=== PATIENT | male | born 1970 | race Caucasian/White ===

== ENCOUNTER 2019-09-15 21:40 | Inpatient (IN) | payer MEDICAID, OTHER ==
[~2019-09-15] VITALS: Ht 180.3 cm; Wt 60.6 kg
[2019-09-15 21:00] VITALS: BP 130/92
[2019-09-15 22:00] VITALS: BP 129/93
--- NOTE | 2019-09-15 22:11 | NUR ---
PAGER ID: [phone] MESSAGE: Jeison Hamm. Olivier Barrios in room 311, has arrived direct admit from [place]. He is here for a left pneumothorax, chest tube in place. Dr Butler to consult in Am for possible VATS procedure. Shekhar Rn Ext [phone]
[2019-09-15] MEDS ORDERED: magnesium Cl slow-release 64mg tablet PO PRN (22:15)
[2019-09-15] MEDS ORDERED: magnesium 4gm in 100ml NS 100 ML IV PRN (22:15)
[2019-09-15] MEDS ORDERED: mag hydrox/Alum hydrox/simeth 30ml oral suspension PO PRN (22:15)
[2019-09-15] MEDS ORDERED: morphine 2 MG/ML inj. syringe IV PRN (22:15)
[2019-09-15] MEDS ORDERED: bisacodyl 10mg suppository rectal RC PRN (22:15)
[2019-09-15] MEDS ORDERED: potassium CL 10mEq/100ml bag 100 ML IV PRN ×2 (22:15)
[2019-09-15] MEDS ORDERED: acetaminophen 325mg tablet PO PRN (22:15)
[2019-09-15] MEDS ORDERED: potassium Cl 20 mEq SR tablet PO PRN ×2 (22:15)
[2019-09-15] MEDS ORDERED: magnesium 2GM in 50ml NS 50 ML IV PRN (22:15)
[2019-09-15] MEDS ORDERED: ondansetron/PF 4mg/2ml inj IV PRN (22:15)
[2019-09-16] MEDS: HYDROcodone/acetaminophen 5mg/325mg tablet PO PRN ×2 (00:07→13:18)
[2019-09-16 02:00] VITALS: BP 137/69
[2019-09-16 02:57] LABS: BASOPHILS # (AUTO) 0.1 X10'3 (0-0.2); BASOPHILS % (AUTO) 0.5 % (0-1); EOSINOPHILS # (AUTO) 0.2 X10'3 (0-0.9); EOSINOPHILS % (AUTO) 2.1 % (0-6); HEMATOCRIT 49.9 % (42.0-52.0); HEMOGLOBIN 16.7 g/dl (14.0-17.9); LYMPHOCYTES # (AUTO) 2.2 X10'3 (1.1-4.8); LYMPHOCYTES % (AUTO) 18.8 % (21-51); MEAN CORPUSCULAR HEMOGLOBIN 31.2 PG (27.0-31.0); MEAN CORPUSCULAR HGB CONC 33.4 g/dL (33.0-36.5); MEAN CORPUSCULAR VOLUME 93.4 FL (78-98); MONOCYTES # (AUTO) 1.1 X10'3 (0-0.9); MONOCYTES % (AUTO) 9.3 % (2-12); NEUTROPHILS # (AUTO) 8.1 X10'3 (1.8-7.7); NEUTROPHILS % (AUTO) 69.3 % (42-75); PLATELET COUNT 337 X10'3 (140-440); RED BLOOD COUNT 5.34 X10'6 (4.70-6.10); RED CELL DISTRIBUTION WIDTH 14.4 % (11.5-14.5); WHITE BLOOD COUNT 11.6 X10'3 (4.5-11.0)
[2019-09-16 03:02] LABS: ALANINE AMINOTRANSFERASE 22 U/L (12-78); ALBUMIN 3.5 G/DL (3.4-5.0); ALKALINE PHOSPHATASE 56 IU/L (46-116); ANION GAP 8 (8-16); ASPARTATE AMINO TRANSFERASE 19 U/L (10-37); BILIRUBIN,TOTAL 0.3 MG/DL (0.1-1.0); BLOOD UREA NITROGEN 12 MG/DL (7-18); BUN/CREATININE RATIO 13.2 (5.4-32.0); CALCIUM 9.2 MG/DL (8.5-10.1); CHLORIDE 107 MMOL/L (99-107); CREATININE 0.91 MG/DL (0.60-1.10); GLUCOSE 108 MG/DL (70-104); MAGNESIUM 1.8 MG/DL (1.5-2.4); PHOSPHORUS 3.4 MG/DL (2.3-4.5); POTASSIUM 4.2 MMOL/L (3.5-5.1); SODIUM 141 MMOL/L (135-145); TOTAL CARBON DIOXIDE 25.7 MMOL/L (24-32); TOTAL PROTEIN 6.9 G/DL (6.4-8.2); eGFR 89 ML/MIN
[2019-09-16 06:00] VITALS: BP 124/88
--- NOTE | 2019-09-16 06:22 | NUR ---
Problems reprioritized. Patient report given, questions answered & plan of care reviewed with Tamar GERARD.
[2019-09-16] MEDS: K and/or MAG REPLACEMENT MC SCH ×2 (08:00→20:00)
[2019-09-16] MEDS ORDERED: FLU VACC QS2019-20 36MOS UP/PF 60 MCG/0.5 ML SYRINGE IMVAC ONE (10:00)
[2019-09-16] MEDS ORDERED: [UNRECOGNIZED DRUG - CODE] PO (10:27)
[2019-09-16 11:00] VITALS: BP 133/95
[2019-09-16] MEDS: docusate sod 100mg capsule PO SCH ×2 (13:33→19:19)
[2019-09-16 15:00] VITALS: BP 130/91
[2019-09-16 18:00] VITALS: BP 146/98
--- NOTE | 2019-09-16 18:37 | NUR ---
Patient in room MED 311. I have received report from Tamar GERARD and had the opportunity to ask questions and assume patient care.
[2019-09-16 22:00] VITALS: BP 155/112
[2019-09-17] VITALS (16 sets, daily range): BP systolic 101–149; BP diastolic 63–101
[2019-09-17 05:56] LABS: EOSINOPHILS # (AUTO) 0.2 X10'3 (0-0.9); LYMPHOCYTES # (AUTO) 1.7 X10'3 (1.1-4.8); MEAN PLATELET VOLUME 8.6 FL (7.4-10.4); NEUTROPHILS # (AUTO) 5.8 X10'3 (1.8-7.7); WHITE BLOOD COUNT 8.4 X10'3 (4.5-11.0)
[2019-09-17 05:58] LABS: BASOPHILS % (AUTO) 0.5 % (0-1); EOSINOPHILS % (AUTO) 2.5 % (0-6); HEMATOCRIT 51.6 % (42.0-52.0); HEMOGLOBIN 17.2 g/dl (14.0-17.9); LYMPHOCYTES % (AUTO) 20.6 % (21-51); MEAN CORPUSCULAR HEMOGLOBIN 31.4 PG (27.0-31.0); MEAN CORPUSCULAR HGB CONC 33.4 g/dL (33.0-36.5); MEAN CORPUSCULAR VOLUME 94.1 FL (78-98); MONOCYTES # (AUTO) 0.6 X10'3 (0-0.9); MONOCYTES % (AUTO) 7.7 % (2-12); NEUTROPHILS % (AUTO) 68.7 % (42-75); PLATELET COUNT 349 X10'3 (140-440); RED BLOOD COUNT 5.48 X10'6 (4.70-6.10); RED CELL DISTRIBUTION WIDTH 13.9 % (11.5-14.5)
[2019-09-17 06:22] LABS: ALANINE AMINOTRANSFERASE 28 U/L (12-78); ALBUMIN 3.6 G/DL (3.4-5.0); ALKALINE PHOSPHATASE 59 IU/L (46-116); ANION GAP 7 (8-16); ASPARTATE AMINO TRANSFERASE 25 U/L (10-37); BILIRUBIN,TOTAL 0.4 MG/DL (0.1-1.0); BLOOD UREA NITROGEN 15 MG/DL (7-18); BUN/CREATININE RATIO 16.5 (5.4-32.0); CALCIUM 9.4 MG/DL (8.5-10.1); CHLORIDE 105 MMOL/L (99-107); CREATININE 0.91 MG/DL (0.60-1.10); GLUCOSE 91 MG/DL (70-104); MAGNESIUM 1.9 MG/DL (1.5-2.4); PHOSPHORUS 4.4 MG/DL (2.3-4.5); POTASSIUM 4.1 MMOL/L (3.5-5.1); SODIUM 140 MMOL/L (135-145); TOTAL CARBON DIOXIDE 28.5 MMOL/L (24-32); TOTAL PROTEIN 7.3 G/DL (6.4-8.2); eGFR 89 ML/MIN
--- NOTE | 2019-09-17 06:22 | NUR ---
Patient in room MED 311. I have received report from Shekhar GERARD and had the opportunity to ask questions and assume patient care.
--- NOTE | 2019-09-17 06:25 | NUR ---
Problems reprioritized. Patient report given, questions answered & plan of care reviewed with Ti GERARD.
[2019-09-17] MEDS: docusate sod 100mg capsule PO SCH ×2 (07:26→19:47)
[2019-09-17] MEDS: HYDROcodone/acetaminophen 5mg/325mg tablet PO PRN ×3 (07:27→19:48)
[2019-09-17] MEDS: K and/or MAG REPLACEMENT MC SCH ×2 (08:31→18:30)
--- NOTE | 2019-09-17 18:31 | NUR ---
Patient in room MED 311. I have received report from Ti GERARD and had the opportunity to ask questions and assume patient care.
--- NOTE | 2019-09-17 18:33 | NUR ---
Problems reprioritized. Patient report given, questions answered & plan of care reviewed with Shekhar RN.
[2019-09-18] VITALS (7 sets, daily range): BP systolic 132–144; BP diastolic 76–109
[2019-09-18] MEDS: HYDROcodone/acetaminophen 5mg/325mg tablet PO PRN ×2 (06:20→19:44)
--- NOTE | 2019-09-18 06:21 | NUR ---
Patient in room MED 311. I have received report from MOUSTAPHA Corrigan and had the opportunity to ask questions and assume patient care. Patient currently resting in bed, c/o pain 5/10, [place] 5 given as ordered, no other complaints, bed locked and low, call light in reach, will continue to monitor.
--- NOTE | 2019-09-18 06:24 | NUR ---
Problems reprioritized. Patient report given, questions answered & plan of care reviewed with Alana GERARD.
[2019-09-18 06:36] LABS: BASOPHILS % (AUTO) 0.4 % (0-1); EOSINOPHILS # (AUTO) 0.2 X10'3 (0-0.9); EOSINOPHILS % (AUTO) 2.5 % (0-6); HEMATOCRIT 50.8 % (42.0-52.0); HEMOGLOBIN 17.3 g/dl (14.0-17.9); LYMPHOCYTES # (AUTO) 1.8 X10'3 (1.1-4.8); LYMPHOCYTES % (AUTO) 25.1 % (21-51); MEAN CORPUSCULAR HEMOGLOBIN 31.8 PG (27.0-31.0); MEAN CORPUSCULAR VOLUME 93.5 FL (78-98); MEAN PLATELET VOLUME 8.7 FL (7.4-10.4); MONOCYTES # (AUTO) 0.7 X10'3 (0-0.9); MONOCYTES % (AUTO) 9.6 % (2-12); NEUTROPHILS # (AUTO) 4.4 X10'3 (1.8-7.7); NEUTROPHILS % (AUTO) 62.4 % (42-75); PLATELET COUNT 354 X10'3 (140-440); RED BLOOD COUNT 5.43 X10'6 (4.70-6.10); RED CELL DISTRIBUTION WIDTH 14.2 % (11.5-14.5); WHITE BLOOD COUNT 7.1 X10'3 (4.5-11.0)
[2019-09-18 06:42] LABS: ALANINE AMINOTRANSFERASE 32 U/L (12-78); ALBUMIN 3.6 G/DL (3.4-5.0); ALBUMIN/GLOBULIN RATIO 0.9 (1.1-1.5); ALKALINE PHOSPHATASE 59 IU/L (46-116); ANION GAP 7 (8-16); ASPARTATE AMINO TRANSFERASE 26 U/L (10-37); BILIRUBIN,TOTAL 0.4 MG/DL (0.1-1.0); BLOOD UREA NITROGEN 15 MG/DL (7-18); BUN/CREATININE RATIO 17.4 (5.4-32.0); CALCIUM 9.6 MG/DL (8.5-10.1); CHLORIDE 104 MMOL/L (99-107); CREATININE 0.86 MG/DL (0.60-1.10); GLUCOSE 91 MG/DL (70-104); MAGNESIUM 1.8 MG/DL (1.5-2.4); PHOSPHORUS 3.8 MG/DL (2.3-4.5); SODIUM 140 MMOL/L (135-145); TOTAL CARBON DIOXIDE 28.8 MMOL/L (24-32); TOTAL PROTEIN 7.4 G/DL (6.4-8.2); eGFR > 90 ML/MIN
[2019-09-18] MEDS: K and/or MAG REPLACEMENT MC SCH ×2 (08:00→19:33)
[2019-09-18] MEDS: docusate sod 100mg capsule PO SCH ×2 (08:03→19:43)
[2019-09-18] MEDS ORDERED: gabapentin 400mg capsule PO ONE (11:50)
[2019-09-18] MEDS ORDERED: cefazolin/dext.iso 2gm/50ml 50 ML IV ONE (11:50)
--- NOTE | 2019-09-18 18:30 | NUR ---
Problems reprioritized. Patient report given, questions answered & plan of care reviewed with MOUSTAPHA Wood.
--- NOTE | 2019-09-18 23:05 | NUR ---
Dr. [place], notified r/t diastolic HTN noted. pt denies chest pain, map 118. BP 136/109. no new orders will continue to monitor.
[2019-09-19] VITALS (26 sets, daily range): BP systolic 125–208; BP diastolic 78–129
[2019-09-19 03:17] LABS: BASOPHILS % (AUTO) 0.3 % (0-1); EOSINOPHILS # (AUTO) 0.2 X10'3 (0-0.9); EOSINOPHILS % (AUTO) 2.1 % (0-6); HEMATOCRIT 51.9 % (42.0-52.0); HEMOGLOBIN 17.4 g/dl (14.0-17.9); LYMPHOCYTES # (AUTO) 2.2 X10'3 (1.1-4.8); LYMPHOCYTES % (AUTO) 28.2 % (21-51); MEAN CORPUSCULAR HEMOGLOBIN 31.4 PG (27.0-31.0); MEAN CORPUSCULAR HGB CONC 33.5 g/dL (33.0-36.5); MEAN CORPUSCULAR VOLUME 93.6 FL (78-98); MEAN PLATELET VOLUME 8.5 FL (7.4-10.4); MONOCYTES # (AUTO) 0.8 X10'3 (0-0.9); MONOCYTES % (AUTO) 10.6 % (2-12); NEUTROPHILS # (AUTO) 4.6 X10'3 (1.8-7.7); NEUTROPHILS % (AUTO) 58.8 % (42-75); PLATELET COUNT 334 X10'3 (140-440); RED BLOOD COUNT 5.55 X10'6 (4.70-6.10); WHITE BLOOD COUNT 7.8 X10'3 (4.5-11.0)
[2019-09-19 03:37] LABS: ALANINE AMINOTRANSFERASE 42 U/L (12-78); ALBUMIN 3.6 G/DL (3.4-5.0); ALKALINE PHOSPHATASE 61 IU/L (46-116); ANION GAP 5 (8-16); ASPARTATE AMINO TRANSFERASE 34 U/L (10-37); BILIRUBIN,TOTAL 0.3 MG/DL (0.1-1.0); BLOOD UREA NITROGEN 19 MG/DL (7-18); BUN/CREATININE RATIO 19.8 (5.4-32.0); CALCIUM 9.2 MG/DL (8.5-10.1); CHLORIDE 104 MMOL/L (99-107); CREATININE 0.96 MG/DL (0.60-1.10); GLUCOSE 92 MG/DL (70-104); MAGNESIUM 1.9 MG/DL (1.5-2.4); PHOSPHORUS 4.5 MG/DL (2.3-4.5); POTASSIUM 4.2 MMOL/L (3.5-5.1); SODIUM 140 MMOL/L (135-145); TOTAL CARBON DIOXIDE 31.2 MMOL/L (24-32); TOTAL PROTEIN 7.2 G/DL (6.4-8.2); eGFR 84 ML/MIN
[2019-09-19] MEDS ORDERED: cefazolin/dext.iso 2gm/50ml 50 ML IV ONE (05:30)
[2019-09-19] MEDS ORDERED: fentaNYL /PF 50mcg/ml 5ml ampule ONE (06:50)
[2019-09-19] MEDS ORDERED: midazolam 2 mg/2 ml injection ONE ×2 (06:50→06:57)
[2019-09-19] MEDS ORDERED: BUPIVAcaine/PF 2.5 mg/ml (0.25%) 30ml vial ONE (07:11)
[2019-09-19] MEDS ORDERED: sterile Talc 2 GM powder vial ONE (07:12)
--- NOTE | 2019-09-19 07:15 | NUR ---
Prep completed and consent signed. Patient taken off the floor by OR team for LVATS for blebectomy and pleurodesis.
--- NOTE | 2019-09-19 07:16 | NUR ---
PATIENT OFF FLOOR FOR VATS-PLEURODESIS
[2019-09-19] MEDS ORDERED: glycopyrrolate 0.2mg/ml inj ONE (07:17)
[2019-09-19] MEDS ORDERED: propofol 10mg/ml 20ml vial IV ONE (07:17)
[2019-09-19] MEDS ORDERED: dexamethasone sod phosphate 10mg/ml inj ONE (07:17)
[2019-09-19] MEDS ORDERED: acetaminophen 1000 MG/100ml vial IV ONE (07:17)
[2019-09-19] MEDS ORDERED: LIDOcaine 1%/PF 5ML 10 MG/ML VIAL ONE (07:17)
[2019-09-19] MEDS ORDERED: sevoflurane 250ml liquid IH ONE (07:17)
[2019-09-19] MEDS ORDERED: ondansetron/PF 4mg/2ml inj ONE (07:17)
[2019-09-19] MEDS ORDERED: neostigmine methylsulfate 1 MG/ML 10ml vial ONE (07:17)
[2019-09-19] MEDS ORDERED: fentaNYL/PF 50MCG/1 ML 2ML syringe ONE (08:51)
[2019-09-19] MEDS ORDERED: morphine 4 MG/ML inj SYRINge IV PRN (09:20)
[2019-09-19] MEDS ORDERED: meperidine/PF 25mg/ml syringe IV PRN ×3 (09:20)
[2019-09-19] MEDS ORDERED: morphine 2 MG/ML inj. syringe IV PRN (09:20)
[2019-09-19] MEDS ORDERED: ringers solution, lacted 1,000 ML IV SCH (09:20)
[2019-09-19] MEDS ORDERED: proCHLORperazine 10 MG/2 ml inj IV PRN (09:20)
[2019-09-19] MEDS ORDERED: ondansetron/PF 4mg/2ml inj IV PRN ×2 (09:20→09:45)
--- NOTE | 2019-09-19 09:38 | NUR ---
PT RECIEVED FROM OR VIA BED ACCOMPANIED BY ANESTHESIA DR POLLARD, REPORT GIVEN AT THIS TIME.18 GUAGE PIV L FA PATENT AND RUNNING LR AT 100 ML/HR. TRIPLE LUMEN CENTRAL LINE R IJ, 20 GAUGE ART LINR RWRIST, F/C DRAINING CLEAR YELLOW URINE, CT TO LOW CONTINUOUS SUCTION, 100 ML IN AT DELIVERY, SMALL AIRLEAK NOTED, DR AWARE. LG BANDAID AND 4X4 DRESSING CDI. SKIN PINK AND WARM, PT INTUBATED UPON DELIVERY, WAS EXTUBATED IMMEDIATELY BY DR POLLARD.BLOOD PRESSURE 200/100, ALL OTHER VITALS STABLE. PAIN LEVEL AT 7.
[2019-09-19] MEDS ORDERED: hydrALAZINE 20mg/ml inj. IV ONE ×2 (09:40→09:44)
[2019-09-19] MEDS ORDERED: magnesium 2GM in 50ml NS 50 ML IV PRN (09:45)
[2019-09-19] MEDS ORDERED: potassium CL 10mEq/100ml bag 100 ML IV PRN (09:45)
[2019-09-19] MEDS ORDERED: naloxone 0.4 mg/ml inj IV PRN (09:45)
[2019-09-19] MEDS ORDERED: potassium Cl 20mEq/100mL bag 100 ML IV PRN (09:45)
[2019-09-19] MEDS ORDERED: potassium Cl 20 mEq SR tablet PO PRN (09:45)
[2019-09-19] MEDS ORDERED: CADD PCA waste documentation MC PRN (09:45)
[2019-09-19] MEDS ORDERED: albuterol 2.5 MG/3 ML nebule NEB PRN (09:45)
[2019-09-19] MEDS ORDERED: metoclopramide 5 mg/ml inj IV PRN (09:45)
[2019-09-19] MEDS ORDERED: labetalol 20mg/4ml (5mg/ml) syringe IV ONE ×2 (09:50→09:52)
[2019-09-19] MEDS ORDERED: FLU VACC QS2019-20 36MOS UP/PF 60 MCG/0.5 ML SYRINGE IMVAC ONE (10:00)
[2019-09-19] MEDS: nitroGLYCERIN-Tridil 50MG/D5W 250 ML IV PRN ×2 (10:15→10:17)
[2019-09-19] MEDS ORDERED: enalaprilat dihydrate 2.5mg/2ml vial IV PRN (10:25)
--- NOTE | 2019-09-19 11:37 | NUR ---
Received report from MOUSTAPHA Krause in PACU. Patient is now alert and oriented, Has RIJ in place SL and LR running at 100 mL/hr in PIV. Patient is reporting no pain after receiving morphine. Patient had the ART line d/c and no longer on NTG gtt. BP more stable. Patient will be coming back up to the floor from the PACU.
--- NOTE | 2019-09-19 11:45 | NUR ---
Patient arrived to the ACCE unit. Patient is alert and oriented but he is still sleepy from the anesthesia. Assessment of patient complete and reassumed care of this patient.
--- NOTE | 2019-09-19 11:48 | NUR ---
PT TRANSFERRED VIA BED ACCOMPANIED BY MYSELF, BED DOWN, RAILS UP, REPORT GIVEN TO ALEJO RN,LEFT IN HER CARE.18 GUAGE PIV L FA PATENT AND RUNNING NS AT 100 ML/HR. TRIPLE LUMEN CENTRAL LINE R IJ, F/C DRAINING CLEAR YELLOW URINE, CT TO LOW CONTINUOUS SUCTION, 400 ML OUT AT DELIVERY, SMALL AIRLEAK NOTED, DR AWARE. LG BANDAID AND 4X4 DRESSING CDI. SKIN PINK AND WARM, VITALS STABLE. PAIN LEVEL AT 0-3 AT THIS TIME.
[2019-09-19 12:35] LABS: BASOPHILS # (AUTO) 0.1 X10'3 (0-0.2); BASOPHILS % (AUTO) 0.2 % (0-1); EOSINOPHILS # (AUTO) 0.1 X10'3 (0-0.9); EOSINOPHILS % (AUTO) 0.5 % (0-6); HEMATOCRIT 47.7 % (42.0-52.0); HEMOGLOBIN 15.4 g/dl (14.0-17.9); LYMPHOCYTES # (AUTO) 1.7 X10'3 (1.1-4.8); LYMPHOCYTES % (AUTO) 6.3 % (21-51); MEAN CORPUSCULAR HEMOGLOBIN 30.6 PG (27.0-31.0); MEAN CORPUSCULAR HGB CONC 32.3 g/dL (33.0-36.5); MEAN CORPUSCULAR VOLUME 94.5 FL (78-98); MEAN PLATELET VOLUME 8.7 FL (7.4-10.4); MONOCYTES # (AUTO) 1.1 X10'3 (0-0.9); MONOCYTES % (AUTO) 4.3 % (2-12); NEUTROPHILS # (AUTO) 23.5 X10'3 (1.8-7.7); NEUTROPHILS % (AUTO) 88.7 % (42-75); PLATELET COUNT 352 X10'3 (140-440); RED BLOOD COUNT 5.05 X10'6 (4.70-6.10); RED CELL DISTRIBUTION WIDTH 14.1 % (11.5-14.5)
[2019-09-19 12:40] LABS: WHITE BLOOD COUNT 26.5 X10'3 (4.5-11.0)
[2019-09-19 12:45] LABS: ALBUMIN 3.1 G/DL (3.4-5.0); ANION GAP 3 (8-16); BLOOD UREA NITROGEN 18 MG/DL (7-18); BUN/CREATININE RATIO 17.3 (5.4-32.0); CALCIUM 8.5 MG/DL (8.5-10.1); CHLORIDE 105 MMOL/L (99-107); CREATININE 1.04 MG/DL (0.60-1.10); GLUCOSE 164 MG/DL (70-104); POTASSIUM 4.3 MMOL/L (3.5-5.1); SODIUM 141 MMOL/L (135-145); TOTAL CARBON DIOXIDE 33.5 MMOL/L (24-32); eGFR 77 ML/MIN
[2019-09-19 13:11] LABS: PLATELET ESTIMATE NORMAL; TOTAL CELLS COUNTED 100
[2019-09-19] MEDS: HYDROcodone/acetaminophen 10/325mg tab PO PRN (15:17)
[2019-09-19] MEDS: ceFAZolin inj. 1,000 MG in dextrose 5%-water 50ml 50 ML IV SCH ×2 (15:18→23:13)
--- NOTE | 2019-09-19 15:56 | NUR ---
Patient left the floor with OR staff to have LVATS for Blebectomy and Pleurodesis. Patient was alert and oriented and in stable condition. Addendum: 09/19/19 at 1559 by Janet Murillo RN Note already completed and this note wrong time.
--- NOTE | 2019-09-19 16:56 | NUR ---
PAGER ID: [phone] MESSAGE: Dr. Gillespie, patient in rm 311, Pichardo, hypertensive. Contacted surgeon, Hosp to cover this problem. Please call ACCE, [phone]. Thank you, Luz Marina Gonzales RN [phone]
--- NOTE | 2019-09-19 17:00 | NUR ---
PER Dr. Gillespie, orders given for Lisinopril 5 mg po BID, with a once time dose now.
[2019-09-19] MEDS ORDERED: lisinopril 5mg tablet PO ONE (17:05)
--- NOTE | 2019-09-19 18:22 | NUR ---
Problems reprioritized. Patient report given, questions answered & plan of care reviewed with MOUSTAPHA Wood.
[2019-09-19] MEDS: docusate sod 100mg capsule PO SCH (19:53)
[2019-09-19] MEDS: gabapentin 300mg capsule PO SCH (19:54)
[2019-09-19] MEDS: lisinopril 5mg tablet PO SCH (19:54)
[2019-09-20 02:07] LABS: BASOPHILS # (AUTO) 0.1 X10'3 (0-0.2); BASOPHILS % (AUTO) 0.5 % (0-1); EOSINOPHILS # (AUTO) 0.2 X10'3 (0-0.9); EOSINOPHILS % (AUTO) 1.4 % (0-6); HEMATOCRIT 44.5 % (42.0-52.0); LYMPHOCYTES # (AUTO) 1.2 X10'3 (1.1-4.8); MEAN CORPUSCULAR HEMOGLOBIN 31.4 PG (27.0-31.0); MEAN CORPUSCULAR HGB CONC 33.7 g/dL (33.0-36.5); MEAN CORPUSCULAR VOLUME 93.1 FL (78-98); MEAN PLATELET VOLUME 8.8 FL (7.4-10.4); MONOCYTES # (AUTO) 1.1 X10'3 (0-0.9); MONOCYTES % (AUTO) 8.2 % (2-12); NEUTROPHILS # (AUTO) 11.2 X10'3 (1.8-7.7); NEUTROPHILS % (AUTO) 80.9 % (42-75); PLATELET COUNT 319 X10'3 (140-440); RED BLOOD COUNT 4.78 X10'6 (4.70-6.10); RED CELL DISTRIBUTION WIDTH 13.8 % (11.5-14.5); WHITE BLOOD COUNT 13.8 X10'3 (4.5-11.0)
[2019-09-20 02:08] VITALS: BP 115/84
[2019-09-20 02:22] LABS: ALANINE AMINOTRANSFERASE 34 U/L (12-78); ALBUMIN 3.2 G/DL (3.4-5.0); ALKALINE PHOSPHATASE 56 IU/L (46-116); ANION GAP 8 (8-16); ASPARTATE AMINO TRANSFERASE 36 U/L (10-37); BILIRUBIN,TOTAL 0.4 MG/DL (0.1-1.0); BLOOD UREA NITROGEN 9 MG/DL (7-18); BUN/CREATININE RATIO 10.5 (5.4-32.0); CALCIUM 8.6 MG/DL (8.5-10.1); CHLORIDE 103 MMOL/L (99-107); CREATININE 0.86 MG/DL (0.60-1.10); GLUCOSE 107 MG/DL (70-104); MAGNESIUM 1.5 MG/DL (1.5-2.4); POTASSIUM 4.2 MMOL/L (3.5-5.1); SODIUM 141 MMOL/L (135-145); TOTAL CARBON DIOXIDE 29.9 MMOL/L (24-32); TOTAL PROTEIN 6.3 G/DL (6.4-8.2); eGFR > 90 ML/MIN
[2019-09-20] MEDS: magnesium 4gm in 100ml NS 100 ML IV PRN (05:04)
[2019-09-20 06:00] VITALS: BP 125/88
[2019-09-20] MEDS: HYDROcodone/acetaminophen 10/325mg tab PO PRN ×3 (06:00→22:31)
--- NOTE | 2019-09-20 06:26 | NUR ---
Problems reprioritized. Patient report given, questions answered & plan of care reviewed with Margo GERARD.
--- NOTE | 2019-09-20 06:31 | NUR ---
Patient in room MED 311. I have received report from Connor GERARD and had the opportunity to ask questions and assume patient care.
[2019-09-20] MEDS: docusate sod 100mg capsule PO SCH ×2 (09:24→21:04)
[2019-09-20] MEDS: lisinopril 5mg tablet PO SCH ×2 (09:24→21:04)
[2019-09-20] MEDS: gabapentin 300mg capsule PO SCH ×2 (09:25→21:04)
[2019-09-20 11:00] VITALS: BP 125/80
[2019-09-20 12:22] LABS: ALBUMIN 3.2 G/DL (3.4-5.0); ANION GAP 3 (8-16); BLOOD UREA NITROGEN 9 MG/DL (7-18); BUN/CREATININE RATIO 11.5 (5.4-32.0); CALCIUM 8.3 MG/DL (8.5-10.1); CHLORIDE 102 MMOL/L (99-107); CREATININE 0.78 MG/DL (0.60-1.10); GLUCOSE 90 MG/DL (70-104); POTASSIUM 4.1 MMOL/L (3.5-5.1); SODIUM 136 MMOL/L (135-145); TOTAL CARBON DIOXIDE 31.1 MMOL/L (24-32); eGFR > 90 ML/MIN
[2019-09-20 15:00] VITALS: BP 117/79
--- NOTE | 2019-09-20 15:33 | NUR ---
Initial: Pt admit w/ L pneumothorax s/p L VATS, blebectomy, and pleurectomy; L lateral CT in place per MD. PO 75-100% avg full liquid diet partially meeting needs on kcal restricted diet. To advance to regular as tolerated per EMR. LBM 09/18. Will monitor for diet advancement and additional protein needs post-op. Rec: 1. advance diet per MD to regular 2. monitor for ONS needs post-op 3. bowel care as needed 4. wt per rx Addendum: 09/20/19 at [address] Amended: Links added.
[2019-09-20 18:00] VITALS: BP 114/87
--- NOTE | 2019-09-20 18:16 | NUR ---
Problems reprioritized. Patient report given, questions answered & plan of care reviewed with Shekhar RN.
[2019-09-20 22:00] VITALS: BP 128/55
[2019-09-21 02:00] VITALS: BP_SYST 106; BP_SYST 155; BP_DIAS 53; BP_DIAS 93
[2019-09-21 03:38] LABS: BASOPHILS # (AUTO) 0.1 X10'3 (0-0.2); BASOPHILS % (AUTO) 0.9 % (0-1); EOSINOPHILS # (AUTO) 0.2 X10'3 (0-0.9); HEMATOCRIT 41.3 % (42.0-52.0); HEMOGLOBIN 13.9 g/dl (14.0-17.9); LYMPHOCYTES # (AUTO) 2.2 X10'3 (1.1-4.8); LYMPHOCYTES % (AUTO) 18.9 % (21-51); MEAN CORPUSCULAR HEMOGLOBIN 31.4 PG (27.0-31.0); MEAN CORPUSCULAR HGB CONC 33.6 g/dL (33.0-36.5); MEAN CORPUSCULAR VOLUME 93.4 FL (78-98); MEAN PLATELET VOLUME 8.4 FL (7.4-10.4); MONOCYTES % (AUTO) 8.6 % (2-12); NEUTROPHILS # (AUTO) 8.2 X10'3 (1.8-7.7); NEUTROPHILS % (AUTO) 69.6 % (42-75); PLATELET COUNT 296 X10'3 (140-440); RED BLOOD COUNT 4.42 X10'6 (4.70-6.10); RED CELL DISTRIBUTION WIDTH 14.1 % (11.5-14.5); WHITE BLOOD COUNT 11.7 X10'3 (4.5-11.0)
[2019-09-21 03:50] LABS: ALANINE AMINOTRANSFERASE 23 U/L (12-78); ALBUMIN/GLOBULIN RATIO 0.9 (1.1-1.5); ALKALINE PHOSPHATASE 48 IU/L (46-116); ANION GAP 4 (8-16); ASPARTATE AMINO TRANSFERASE 27 U/L (10-37); BILIRUBIN,TOTAL 0.4 MG/DL (0.1-1.0); BLOOD UREA NITROGEN 9 MG/DL (7-18); BUN/CREATININE RATIO 12.2 (5.4-32.0); CALCIUM 8.8 MG/DL (8.5-10.1); CHLORIDE 100 MMOL/L (99-107); CREATININE 0.74 MG/DL (0.60-1.10); GLUCOSE 95 MG/DL (70-104); MAGNESIUM 1.9 MG/DL (1.5-2.4); POTASSIUM 4.5 MMOL/L (3.5-5.1); SODIUM 134 MMOL/L (135-145); TOTAL CARBON DIOXIDE 30.3 MMOL/L (24-32); TOTAL PROTEIN 6.3 G/DL (6.4-8.2); eGFR > 90 ML/MIN
[2019-09-21] MEDS: HYDROcodone/acetaminophen 10/325mg tab PO PRN (05:28)
[2019-09-21 06:00] VITALS: BP 132/83
--- NOTE | 2019-09-21 06:30 | NUR ---
Problems reprioritized. Patient report given, questions answered & plan of care reviewed with Margo GERARD.
--- NOTE | 2019-09-21 06:31 | NUR ---
Patient in room MED 311. I have received report from Shekhar GERARD and had the opportunity to ask questions and assume patient care.
[2019-09-21] MEDS: magnesium 4gm in 100ml NS 100 ML IV PRN (07:16)
[2019-09-21] MEDS: lisinopril 5mg tablet PO SCH ×2 (08:00→20:03)
[2019-09-21] MEDS: gabapentin 300mg capsule PO SCH (08:00)
--- NOTE | 2019-09-21 08:00 | NUR ---
Patient continues to have crepitus on the L side of upper back and scapula areas. MD aware.
--- NOTE | 2019-09-21 09:00 | NUR ---
Received a phone call from radiology regarding the am chest xray. Showed pneumothorax at 8cm which was a 4 cm increase from 09/19. Notified Olivier Caruso. Will wait for orders.
[2019-09-21] MEDS: docusate sod 100mg capsule PO SCH ×2 (09:48→20:03)
[2019-09-21 11:00] VITALS: BP 126/90
--- NOTE | 2019-09-21 13:00 | NUR ---
BENNIE Gusman called back regarding message left about the chest xray result from this morning. Ordered a new portable single chest xray to compare.
--- NOTE | 2019-09-21 13:50 | NUR ---
Marino called back regarding the new CXR, states that it shows improvement. OK for chest tube to remain to water seal. Orders changed to reflect.
[2019-09-21 15:00] VITALS: BP 130/88
--- NOTE | 2019-09-21 15:00 | NUR ---
Central Line removed from R side of neck. Pt tolerated well. The catheter was fully intact. No s/s of any complications noted.
[2019-09-21 18:00] VITALS: BP 130/88
--- NOTE | 2019-09-21 18:15 | NUR ---
Patient in room MED 311. I have received report from MOUSTAPHA Aragon and had the opportunity to ask questions and assume patient care.
--- NOTE | 2019-09-21 18:21 | NUR ---
Reviewed student nurse patient documentation and agreed upon. Addendum: 09/21/19 at 1821 by Lara Bray RN Amended: Links added.
--- NOTE | 2019-09-21 18:28 | NUR ---
Problems reprioritized. Patient report given, questions answered & plan of care reviewed with Jenifer GERARD.
--- NOTE | 2019-09-21 18:44 | NUR ---
This nurse agrees with assessment from Student Nurse From [facility].
[2019-09-21] MEDS: magnesium hydroxide 30ml (MOM) UD suspension PO PRN (20:03)
[2019-09-21 22:00] VITALS: BP 114/74
[2019-09-22] MEDS: HYDROcodone/acetaminophen 10/325mg tab PO PRN ×3 (01:14→21:13)
[2019-09-22 02:00] VITALS: BP 124/79
[2019-09-22 06:00] VITALS: BP 146/91
[2019-09-22 06:07] LABS: BASOPHILS # (AUTO) 0.1 X10'3 (0-0.2); BASOPHILS % (AUTO) 0.5 % (0-1); EOSINOPHILS # (AUTO) 0.4 X10'3 (0-0.9); EOSINOPHILS % (AUTO) 3.3 % (0-6); HEMATOCRIT 40.7 % (42.0-52.0); HEMOGLOBIN 13.8 g/dl (14.0-17.9); LYMPHOCYTES # (AUTO) 2.4 X10'3 (1.1-4.8); LYMPHOCYTES % (AUTO) 21.4 % (21-51); MEAN CORPUSCULAR HEMOGLOBIN 31.2 PG (27.0-31.0); MEAN CORPUSCULAR HGB CONC 33.8 g/dL (33.0-36.5); MEAN CORPUSCULAR VOLUME 92.4 FL (78-98); MEAN PLATELET VOLUME 8.6 FL (7.4-10.4); MONOCYTES # (AUTO) 1.2 X10'3 (0-0.9); MONOCYTES % (AUTO) 10.7 % (2-12); NEUTROPHILS # (AUTO) 7.1 X10'3 (1.8-7.7); NEUTROPHILS % (AUTO) 64.1 % (42-75); PLATELET COUNT 315 X10'3 (140-440); RED BLOOD COUNT 4.41 X10'6 (4.70-6.10); RED CELL DISTRIBUTION WIDTH 13.8 % (11.5-14.5); WHITE BLOOD COUNT 11.1 X10'3 (4.5-11.0)
--- NOTE | 2019-09-22 06:07 | NUR ---
Problems reprioritized. Patient report given, questions answered & plan of care reviewed with MOUSTAPHA Ivey.
[2019-09-22 06:34] LABS: ALANINE AMINOTRANSFERASE 35 U/L (12-78); ALBUMIN 2.9 G/DL (3.4-5.0); ALBUMIN/GLOBULIN RATIO 0.8 (1.1-1.5); ALKALINE PHOSPHATASE 47 IU/L (46-116); ANION GAP 5 (8-16); ASPARTATE AMINO TRANSFERASE 34 U/L (10-37); BILIRUBIN,TOTAL 0.4 MG/DL (0.1-1.0); BLOOD UREA NITROGEN 9 MG/DL (7-18); BUN/CREATININE RATIO 12.7 (5.4-32.0); CHLORIDE 101 MMOL/L (99-107); CREATININE 0.71 MG/DL (0.60-1.10); GLUCOSE 95 MG/DL (70-104); MAGNESIUM 1.9 MG/DL (1.5-2.4); POTASSIUM 4.6 MMOL/L (3.5-5.1); SODIUM 135 MMOL/L (135-145); TOTAL CARBON DIOXIDE 29.4 MMOL/L (24-32); TOTAL PROTEIN 6.6 G/DL (6.4-8.2); eGFR > 90 ML/MIN
[2019-09-22] MEDS: lisinopril 5mg tablet PO SCH ×2 (07:23→21:13)
[2019-09-22] MEDS: docusate sod 100mg capsule PO SCH ×2 (07:23→21:13)
[2019-09-22 10:08] LABS: ALBUMIN 2.9 G/DL (3.4-5.0); ANION GAP 5 (8-16); BLOOD UREA NITROGEN 9 MG/DL (7-18); BUN/CREATININE RATIO 12.3 (5.4-32.0); CALCIUM 9.1 MG/DL (8.5-10.1); CHLORIDE 101 MMOL/L (99-107); CREATININE 0.73 MG/DL (0.60-1.10); GLUCOSE 146 MG/DL (70-104); SODIUM 136 MMOL/L (135-145); eGFR > 90 ML/MIN
[2019-09-22 11:00] VITALS: BP 117/86
[2019-09-22 15:00] VITALS: BP 118/83
--- NOTE | 2019-09-22 17:42 | NUR ---
Student report assessment reviewed and agreed upon. Addendum: 09/22/19 at 1742 by Lara Bray RN Amended: Links added.
[2019-09-22 18:00] VITALS: BP 139/92
--- NOTE | 2019-09-22 18:33 | NUR ---
received report from MOUSTAPHA Ivey
--- NOTE | 2019-09-22 19:00 | NUR ---
pt did not have hospital dinner tray. pt ate pizza brought by family.
[2019-09-22 22:00] VITALS: BP 143/96
[2019-09-23 02:00] VITALS: BP 145/95
--- NOTE | 2019-09-23 02:05 | NUR ---
pt on tele 25. manager telecom notified
[2019-09-23 02:31] LABS: BASOPHILS # (AUTO) 0.1 X10'3 (0-0.2); BASOPHILS % (AUTO) 0.7 % (0-1); EOSINOPHILS # (AUTO) 0.4 X10'3 (0-0.9); EOSINOPHILS % (AUTO) 4.1 % (0-6); HEMATOCRIT 40.1 % (42.0-52.0); HEMOGLOBIN 13.8 g/dl (14.0-17.9); LYMPHOCYTES # (AUTO) 2.4 X10'3 (1.1-4.8); LYMPHOCYTES % (AUTO) 22.3 % (21-51); MEAN CORPUSCULAR HGB CONC 34.5 g/dL (33.0-36.5); MEAN CORPUSCULAR VOLUME 92.8 FL (78-98); MEAN PLATELET VOLUME 8.8 FL (7.4-10.4); MONOCYTES % (AUTO) 9.3 % (2-12); NEUTROPHILS # (AUTO) 6.9 X10'3 (1.8-7.7); NEUTROPHILS % (AUTO) 63.6 % (42-75); PLATELET COUNT 356 X10'3 (140-440); RED BLOOD COUNT 4.32 X10'6 (4.70-6.10); RED CELL DISTRIBUTION WIDTH 13.7 % (11.5-14.5); WHITE BLOOD COUNT 10.8 X10'3 (4.5-11.0)
[2019-09-23 02:45] LABS: ALANINE AMINOTRANSFERASE 35 U/L (12-78); ALBUMIN 3.1 G/DL (3.4-5.0); ALBUMIN/GLOBULIN RATIO 0.8 (1.1-1.5); ALKALINE PHOSPHATASE 50 IU/L (46-116); ANION GAP 5 (8-16); ASPARTATE AMINO TRANSFERASE 32 U/L (10-37); BILIRUBIN,TOTAL 0.3 MG/DL (0.1-1.0); BLOOD UREA NITROGEN 14 MG/DL (7-18); BUN/CREATININE RATIO 19.7 (5.4-32.0); CALCIUM 9.3 MG/DL (8.5-10.1); CHLORIDE 100 MMOL/L (99-107); CREATININE 0.71 MG/DL (0.60-1.10); GLUCOSE 95 MG/DL (70-104); MAGNESIUM 1.7 MG/DL (1.5-2.4); POTASSIUM 4.4 MMOL/L (3.5-5.1); SODIUM 133 MMOL/L (135-145); TOTAL CARBON DIOXIDE 28.4 MMOL/L (24-32); TOTAL PROTEIN 6.9 G/DL (6.4-8.2); eGFR > 90 ML/MIN
[2019-09-23] MEDS: HYDROcodone/acetaminophen 10/325mg tab PO PRN ×3 (03:40→21:43)
--- NOTE | 2019-09-23 06:24 | NUR ---
gave report to MOUSTAPHA Gomez
--- NOTE | 2019-09-23 06:30 | NUR ---
Patient in room MED 311. I have received report from Mariposa GERARD and had the opportunity to ask questions and assume patient care.
[2019-09-23 06:40] VITALS: BP 118/75
[2019-09-23] MEDS: docusate sod 100mg capsule PO SCH ×2 (08:25→21:37)
[2019-09-23] MEDS: lisinopril 5mg tablet PO SCH ×2 (08:25→21:38)
[2019-09-23 10:37] LABS: ALBUMIN 2.9 G/DL (3.4-5.0); ANION GAP 6 (8-16); BLOOD UREA NITROGEN 11 MG/DL (7-18); BUN/CREATININE RATIO 13.4 (5.4-32.0); CALCIUM 9.6 MG/DL (8.5-10.1); CHLORIDE 101 MMOL/L (99-107); CREATININE 0.82 MG/DL (0.60-1.10); GLUCOSE 121 MG/DL (70-104); POTASSIUM 3.9 MMOL/L (3.5-5.1); SODIUM 137 MMOL/L (135-145); TOTAL CARBON DIOXIDE 30.2 MMOL/L (24-32); eGFR > 90 ML/MIN
[2019-09-23 11:30] VITALS: BP 120/90
[2019-09-23 16:00] VITALS: BP 114/88
[2019-09-23 18:00] VITALS: BP 128/80
--- NOTE | 2019-09-23 18:05 | NUR ---
Patient in room MED 311. I have received report from Patricia GERARD and had the opportunity to ask questions and assume patient care.
--- NOTE | 2019-09-23 18:21 | NUR ---
Problems reprioritized. Patient report given, questions answered & plan of care reviewed with Mimi GERARD.
[2019-09-23 22:00] VITALS: BP 117/90
[2019-09-24 02:00] VITALS: BP 147/93
--- NOTE | 2019-09-24 02:16 | NUR ---
CALLED DR APODACA ABOUT PT COMPLAINING OF ITCHING, MULU ORDERED.
[2019-09-24] MEDS: diphenhydrAMINE 25mg capsule PO PRN (03:32)
[2019-09-24] MEDS: HYDROcodone/acetaminophen 10/325mg tab PO PRN ×3 (05:33→21:57)
[2019-09-24 06:04] LABS: BASOPHILS # (AUTO) 0.1 X10'3 (0-0.2); BASOPHILS % (AUTO) 0.8 % (0-1); EOSINOPHILS # (AUTO) 0.8 X10'3 (0-0.9); EOSINOPHILS % (AUTO) 7.5 % (0-6); HEMATOCRIT 44.3 % (42.0-52.0); HEMOGLOBIN 15.2 g/dl (14.0-17.9); LYMPHOCYTES # (AUTO) 2.2 X10'3 (1.1-4.8); LYMPHOCYTES % (AUTO) 22.5 % (21-51); MEAN CORPUSCULAR HEMOGLOBIN 31.9 PG (27.0-31.0); MEAN CORPUSCULAR HGB CONC 34.3 g/dL (33.0-36.5); MEAN PLATELET VOLUME 8.8 FL (7.4-10.4); MONOCYTES % (AUTO) 10.1 % (2-12); NEUTROPHILS # (AUTO) 5.9 X10'3 (1.8-7.7); NEUTROPHILS % (AUTO) 59.1 % (42-75); PLATELET COUNT 417 X10'3 (140-440); RED BLOOD COUNT 4.76 X10'6 (4.70-6.10)
[2019-09-24 06:27] LABS: ALANINE AMINOTRANSFERASE 48 U/L (12-78); ALBUMIN 3.4 G/DL (3.4-5.0); ALBUMIN/GLOBULIN RATIO 0.8 (1.1-1.5); ALKALINE PHOSPHATASE 59 IU/L (46-116); ANION GAP 4 (8-16); ASPARTATE AMINO TRANSFERASE 36 U/L (10-37); BILIRUBIN,TOTAL 0.3 MG/DL (0.1-1.0); BLOOD UREA NITROGEN 12 MG/DL (7-18); BUN/CREATININE RATIO 13.8 (5.4-32.0); CALCIUM 9.9 MG/DL (8.5-10.1); CHLORIDE 101 MMOL/L (99-107); CREATININE 0.87 MG/DL (0.60-1.10); GLUCOSE 97 MG/DL (70-104); MAGNESIUM 1.8 MG/DL (1.5-2.4); POTASSIUM 4.7 MMOL/L (3.5-5.1); SODIUM 139 MMOL/L (135-145); TOTAL PROTEIN 7.6 G/DL (6.4-8.2); eGFR > 90 ML/MIN
[2019-09-24 06:30] VITALS: BP 136/99
--- NOTE | 2019-09-24 06:30 | NUR ---
Patient in room MED 311. I have received report from MICHELLE GERARD and had the opportunity to ask questions and assume patient care.
--- NOTE | 2019-09-24 06:44 | NUR ---
Problems reprioritized. Patient report given, questions answered & plan of care reviewed with Patricia GERARD.
[2019-09-24] MEDS: lisinopril 5mg tablet PO SCH ×2 (08:22→19:30)
[2019-09-24] MEDS: docusate sod 100mg capsule PO SCH ×2 (08:23→19:27)
[2019-09-24 11:00] VITALS: BP 123/93
[2019-09-24 15:00] VITALS: BP 106/81
--- NOTE | 2019-09-24 17:19 | NUR ---
Gave report to Margo GERARD.
--- NOTE | 2019-09-24 17:42 | NUR ---
Assumed pt care from Patricia GERARD and agree with her assessment of this pt.
[2019-09-24 18:00] VITALS: BP 125/82
--- NOTE | 2019-09-24 18:15 | NUR ---
received report from MOUSTAPHA Aragon
--- NOTE | 2019-09-24 18:41 | NUR ---
Problems reprioritized. Patient report given, questions answered & plan of care reviewed with Mariposa GERARD.
[2019-09-24 22:02] VITALS: BP 123/88
[2019-09-25 02:12] VITALS: BP 115/74
[2019-09-25] MEDS: HYDROcodone/acetaminophen 10/325mg tab PO PRN ×3 (05:17→22:44)
[2019-09-25 06:00] VITALS: BP 126/87
--- NOTE | 2019-09-25 06:23 | NUR ---
Student documentation: I have reviewed and agree with all interventions, assessments performed and documented by SN Jordan.
--- NOTE | 2019-09-25 06:36 | NUR ---
Patient in room MED 311. I have received report from nadine/isabel rn/student and had the opportunity to ask questions and assume patient care.
[2019-09-25] MEDS: lisinopril 5mg tablet PO SCH ×2 (08:33→19:55)
[2019-09-25] MEDS: docusate sod 100mg capsule PO SCH ×2 (08:33→19:55)
[2019-09-25 10:00] VITALS: BP 138/72
--- NOTE | 2019-09-25 14:01 | NUR ---
Reassessment: Pt PO 75-100% avg heart healthy diet meeting needs. LBM 09/22 receiving colace. No nutrition intervention at this time. Will continue to monitor. Rec: 1. continue heart healthy diet per MD 2. bowel care as needed 3. wt per rx Addendum: 09/25/19 at [address] Amended: Links added.
[2019-09-25 17:46] VITALS: BP 118/76
[2019-09-25 18:00] VITALS: BP 118/76
--- NOTE | 2019-09-25 18:41 | NUR ---
Patient in room MED 311. I have received report from MOUSTAPHA Boyle and had the opportunity to ask questions and assume patient care. Patient denies CP, SOB, dizziness, n/v, and rated pain 2/10
[2019-09-25] MEDS: magnesium hydroxide 30ml (MOM) UD suspension PO PRN (20:02)
[2019-09-25 22:00] VITALS: BP 115/68
[2019-09-26 02:00] VITALS: BP 118/72
[2019-09-26] MEDS: HYDROcodone/acetaminophen 10/325mg tab PO PRN ×3 (05:02→20:22)
[2019-09-26 06:00] VITALS: BP 125/90
--- NOTE | 2019-09-26 06:21 | NUR ---
Problems reprioritized. Patient report given, questions answered & plan of care reviewed with MOUSTAPHA Boyle. Patient stable at shift change
--- NOTE | 2019-09-26 06:26 | NUR ---
Patient in room MED 311. I have received report from MOUSTAPHA ramsey and had the opportunity to ask questions and assume patient care.
--- NOTE | 2019-09-26 06:39 | NUR ---
Patient in room MED 311. I have received report from mary caesy and had the opportunity to ask questions and assume patient care.
[2019-09-26] MEDS: docusate sod 100mg capsule PO SCH ×2 (08:06→20:20)
[2019-09-26] MEDS: lisinopril 5mg tablet PO SCH ×2 (08:07→20:20)
--- NOTE | 2019-09-26 09:30 | NUR ---
olena hawley at bedside ,chest tube converted to heimlich valve
[2019-09-26 10:00] VITALS: BP 109/86
[2019-09-26 14:00] VITALS: BP 128/94
--- NOTE | 2019-09-26 18:28 | NUR ---
Problems reprioritized. Patient report given, questions answered & plan of care reviewed with MOUSTAPHA Monge.
--- NOTE | 2019-09-26 18:44 | NUR ---
received report from MOUSTAPHA Boyle
[2019-09-26 18:45] VITALS: BP 135/94
[2019-09-26 22:00] VITALS: BP 121/84
[2019-09-27] MEDS: HYDROcodone/acetaminophen 5mg/325mg tablet PO PRN (00:46)
[2019-09-27 02:00] VITALS: BP 133/87
[2019-09-27 06:00] VITALS: BP 134/97
--- NOTE | 2019-09-27 06:26 | NUR ---
gave report to MOUSTAPHA Aragon
--- NOTE | 2019-09-27 06:30 | NUR ---
Patient in room MED 311. I have received report from Mariposa GERARD and had the opportunity to ask questions and assume patient care.
--- NOTE | 2019-09-27 06:30 | NUR ---
Patient in room MED 311. I have received report from Mariposa GERARD and had the opportunity to ask questions and assume patient care.
[2019-09-27] MEDS: HYDROcodone/acetaminophen 10/325mg tab PO PRN ×3 (09:00→21:26)
[2019-09-27] MEDS: lisinopril 5mg tablet PO SCH ×2 (09:03→21:28)
[2019-09-27] MEDS: docusate sod 100mg capsule PO SCH ×2 (09:03→21:28)
[2019-09-27 11:00] VITALS: BP 116/77
[2019-09-27 15:00] VITALS: BP 128/88
[2019-09-27 18:00] VITALS: BP 132/88
--- NOTE | 2019-09-27 18:30 | NUR ---
Problems reprioritized. Patient report given, questions answered & plan of care reviewed with Mariposa GERARD.
--- NOTE | 2019-09-27 19:07 | NUR ---
received report from MOUSTAPHA Aragon
--- NOTE | 2019-09-27 19:22 | NUR ---
received report from MOUSTAPHA Aragon
[2019-09-27 22:00] VITALS: BP 144/86
[2019-09-28 02:00] VITALS: BP 112/77
[2019-09-28] MEDS: HYDROcodone/acetaminophen 5mg/325mg tablet PO PRN ×3 (02:18→20:58)
[2019-09-28 06:00] VITALS: BP 109/74
--- NOTE | 2019-09-28 06:27 | NUR ---
gave report to MOUSTAPHA Franklin
--- NOTE | 2019-09-28 06:29 | NUR ---
Patient in room MED 311. I have received report from MOUSTAPHA Monge and had the opportunity to ask questions and assume patient care.
[2019-09-28] MEDS: docusate sod 100mg capsule PO SCH ×2 (08:42→19:56)
[2019-09-28] MEDS: lisinopril 5mg tablet PO SCH ×2 (08:42→19:56)
[2019-09-28 11:00] VITALS: BP 111/76
[2019-09-28 15:00] VITALS: BP 117/72
[2019-09-28 18:00] VITALS: BP 124/88
--- NOTE | 2019-09-28 18:16 | NUR ---
Problems reprioritized. Patient report given, questions answered & plan of care reviewed with MOUSTAPHA Monge.
--- NOTE | 2019-09-28 18:56 | NUR ---
received report from MOUSTAPHA Franklin
[2019-09-28 22:00] VITALS: BP_SYST 117; BP_SYST 124; BP_DIAS 75; BP_DIAS 88
[2019-09-29 02:00] VITALS: BP 123/91
[2019-09-29] MEDS: HYDROcodone/acetaminophen 5mg/325mg tablet PO PRN ×3 (03:38→16:23)
[2019-09-29 06:00] VITALS: BP 119/87
--- NOTE | 2019-09-29 06:22 | NUR ---
gave report to MOUSTAPHA Franklin
--- NOTE | 2019-09-29 06:39 | NUR ---
Patient in room MED 311. I have received report from MOUSTAPHA Monge and had the opportunity to ask questions and assume patient care.
[2019-09-29] MEDS: lisinopril 5mg tablet PO SCH ×2 (09:00→20:49)
[2019-09-29] MEDS: docusate sod 100mg capsule PO SCH ×2 (09:00→20:48)
[2019-09-29 11:00] VITALS: BP 111/79
[2019-09-29 15:00] VITALS: BP 130/92
[2019-09-29 18:00] VITALS: BP 111/84
--- NOTE | 2019-09-29 18:10 | NUR ---
Patient in room MED 311. I have received report from Noemi GERARD and had the opportunity to ask questions and assume patient care.
--- NOTE | 2019-09-29 18:41 | NUR ---
Problems reprioritized. Patient report given, questions answered & plan of care reviewed with MOUSTAPHA Le.
[2019-09-29 22:00] VITALS: BP 140/117
[2019-09-29] MEDS: HYDROcodone/acetaminophen 10/325mg tab PO PRN (22:10)
[2019-09-30 02:00] VITALS: BP 135/89
[2019-09-30 06:00] VITALS: BP 123/86
[2019-09-30] MEDS: HYDROcodone/acetaminophen 10/325mg tab PO PRN (06:06)
--- NOTE | 2019-09-30 06:34 | NUR ---
Problems reprioritized. Patient report given, questions answered & plan of care reviewed with JAZLYN GERARD.
--- NOTE | 2019-09-30 06:37 | NUR ---
Patient in room MED 311. I have received report from mary lópez and had the opportunity to ask questions and assume patient care.
[2019-09-30] MEDS: docusate sod 100mg capsule PO SCH ×2 (08:09→19:51)
[2019-09-30] MEDS: lisinopril 5mg tablet PO SCH ×2 (08:09→19:51)
--- NOTE | 2019-09-30 10:50 | NUR ---
Reassessment: Continues with great appetite. PO 100% average of heart healthy diet meeting needs. LBM 09/28 receiving colace. No nutrition intervention at this time. Will continue to monitor. Rec: 1. continue heart healthy diet 2. bowel care as needed 3. wt per rx Addendum: 09/30/19 at [address] Amended: Links added.
[2019-09-30 11:00] VITALS: BP 115/79
[2019-09-30] MEDS: HYDROcodone/acetaminophen 5mg/325mg tablet PO PRN ×2 (14:27→21:57)
[2019-09-30 15:00] VITALS: BP 119/87
[2019-09-30 18:00] VITALS: BP 130/86
--- NOTE | 2019-09-30 18:28 | NUR ---
Problems reprioritized. Patient report given, questions answered & plan of care reviewed with MOUSTAPHA Corrigan.
--- NOTE | 2019-09-30 19:08 | NUR ---
Patient in room MED 311. I have received report from Tamar GERARD and had the opportunity to ask questions and assume patient care.
[2019-09-30 22:00] VITALS: BP 115/77
[2019-10-01 02:00] VITALS: BP 111/75
[2019-10-01] MEDS: HYDROcodone/acetaminophen 5mg/325mg tablet PO PRN ×4 (04:01→22:06)
[2019-10-01 06:00] VITALS: BP 120/86
--- NOTE | 2019-10-01 06:19 | NUR ---
Problems reprioritized. Patient report given, questions answered & plan of care reviewed with Noemi Buckner.
--- NOTE | 2019-10-01 06:24 | NUR ---
Patient in room MED 311. I have received report from MOUSTAPHA Corrigan and had the opportunity to ask questions and assume patient care.
[2019-10-01] MEDS: docusate sod 100mg capsule PO SCH ×2 (08:34→19:22)
[2019-10-01] MEDS: lisinopril 5mg tablet PO SCH ×2 (08:34→19:22)
[2019-10-01 11:00] VITALS: BP 116/74
[2019-10-01 15:00] VITALS: BP 130/79
[2019-10-01 18:00] VITALS: BP 123/93
--- NOTE | 2019-10-01 18:00 | NUR ---
Problems reprioritized. Patient report given, questions answered & plan of care reviewed with MOUSTAPHA Corrigan.
--- NOTE | 2019-10-01 18:32 | NUR ---
Patient in room MED 311. I have received report from Noemi GERARD and had the opportunity to ask questions and assume patient care.
[2019-10-01] MEDS: diphenhydrAMINE 25mg capsule PO PRN (20:24)
[2019-10-01 22:00] VITALS: BP 115/77
[2019-10-02 02:00] VITALS: BP 137/91
[2019-10-02] MEDS: HYDROcodone/acetaminophen 5mg/325mg tablet PO PRN ×4 (02:15→20:51)
[2019-10-02 06:00] VITALS: BP 127/86
--- NOTE | 2019-10-02 06:10 | NUR ---
Patient in room MED 311. I have received report from MOUSTAPHA Corrigan and had the opportunity to ask questions and assume patient care.
--- NOTE | 2019-10-02 06:19 | NUR ---
Problems reprioritized. Patient report given, questions answered & plan of care reviewed with Lisette GERARD.
[2019-10-02] MEDS: docusate sod 100mg capsule PO SCH ×2 (08:24→20:52)
[2019-10-02] MEDS: lisinopril 5mg tablet PO SCH ×2 (08:24→20:52)
[2019-10-02 11:00] VITALS: BP 115/86
[2019-10-02 15:00] VITALS: BP 130/82
[2019-10-02 18:00] VITALS: BP 134/83
--- NOTE | 2019-10-02 18:01 | NUR ---
Problems reprioritized. Patient report given, questions answered & plan of care reviewed with MOUSTAPHA Le.
--- NOTE | 2019-10-02 18:05 | NUR ---
Patient in room MED 311. I have received report from Lisette GERARD and had the opportunity to ask questions and assume patient care.
[2019-10-02 22:00] VITALS: BP 115/76
[2019-10-03 02:00] VITALS: BP 144/93
[2019-10-03] MEDS: HYDROcodone/acetaminophen 10/325mg tab PO PRN (02:20)
--- NOTE | 2019-10-03 04:00 | NUR ---
Clamped chest tube, had pt cough to make sure tube was completely clamped shut.
[2019-10-03 06:00] VITALS: BP 117/80
--- NOTE | 2019-10-03 06:05 | NUR ---
Problems reprioritized. Patient report given, questions answered & plan of care reviewed with Tamar GERARD.
--- NOTE | 2019-10-03 06:42 | NUR ---
Patient in room MED 311. I have received report from MOUSTAPHA lópez and had the opportunity to ask questions and assume patient care.
[2019-10-03] MEDS: lisinopril 5mg tablet PO SCH (08:00)
[2019-10-03] MEDS: docusate sod 100mg capsule PO SCH (08:00)
[2019-10-03] MEDS ORDERED: DOCU100C40 PO (09:31)
[2019-10-03] MEDS ORDERED: HYDR-4383 PO (09:31)
[2019-10-03] MEDS ORDERED: LISI-642 PO (09:41)
[2019-10-03 11:00] VITALS: BP 107/75
--- NOTE | 2019-10-03 13:52 | NUR ---
reviewed all discharge instructions including need for 2-view CXR prior to f/u appt with prescriptions confirmed with [facility] in [place] pt discharged home with all belongings
== END 2019-10-03 13:45 | disposition home health service (06) | DRG 121 ==
LOC: UNDOADMIN 21:40 → MED 3N 21:40 → PACU 09-19 10:08 → MED 3N 09-19 11:50
PROVIDERS: ADMIT Family Medicine; ATTEND Thoracic Surgery (Cardiothoracic Vascular Surgery)
PROC: 3E02340 Introduction of Influenza Vaccine into Muscle, Percutaneous Approach (ICD-10-PCS; 2019-09-16)
PROC: 0BBP4ZZ Excision of Left Pleura, Percutaneous Endoscopic Approach (ICD-10-PCS; 2019-09-19)
PROC: 0BBL4ZZ Excision of Left Lung, Percutaneous Endoscopic Approach (ICD-10-PCS; principal; 2019-09-19 07:17)
DX: J95.811 Postprocedural pneumothorax (principal); J43.9 Emphysema, unspecified; R04.2 Hemoptysis; F17.210 Nicotine dependence, cigarettes, uncomplicated; I10 Essential (primary) hypertension; Z80.7 Family history of other malignant neoplasms of lymphoid, hematopoietic and related tissues; Z23 Encounter for immunization
CPT/HCPCS: 36415; 71045; 80048; 80053; 82948; 83735; 84100; 85025; 85610; 86885; 86900; 86901; 87081; 93005; 94668; 97116; 97161; 97530; A4215; A4618; A6222; A6449; A7000; A7048; C1758; G0378; GO378; J0131; J0360; J0690; J1100; J2175; J2250; J2270; J2405; J2704; J2710; J3010; J3475; J3490; J7030; J7060; J7120; Q0163; Q2037